=== PATIENT | male | born 1980 | race Caucasian/White ===

== ENCOUNTER 2023-11-09 14:13 | Outpatient (CLI) | payer BC, SELFPAY ==
--- NOTE | ~2023-11-09 | US_ITS ---
EXAMINATION: US retroperitoneal comp DATE: 11/09/2023 14:34 INDICATION: chronic cystitis TECHNIQUE: Multiple grayscale and Doppler ultrasound images of the kidneys were obtained. COMPARISON: None. FINDINGS: The right kidney measures 11.1 x 7.1 x 6.2 cm. The left kidney measures 13.5 x 5.6 x 3.1 cm. Size dis crepancy likely related to inferior and superior right renal pole shadowing leading to measurement in accuracy. The kidneys demonstrate normal parenchymal echogenicity. There is mild bilateral pelviectas is. The bladder is normal. IMPRESSION: Mild bilateral pelviectasis. Reviewed, dictated and finalized at location K.
== END 2023-11-09 14:14 ==
LOC: MICIMG 14:15
DX: N30.90 Cystitis, unspecified without hematuria (principal)
CPT/HCPCS: 76770

== ENCOUNTER → 2024-01-02 15:55 | Outpatient (CLI) | payer BC, SELFPAY ==
--- NOTE | ~2024-01-02 | XR_ITS ---
EXAM: XR ankle RT min 3V, XR foot RT min 3V DATE: 01/02/2024 16:28 (accession [id number]), 01/02/2024 16:27 (accession [id number]) HISTORY: RIGHT ANKLE PAIN. M25.571 . COMPARISON: None available. FINDINGS: Examination was not initially ordered as STAT priority. Normal mineralization. No fracture or dislocation. Circumscribed, 10 mm x 16 mm, lytic eccentric lesion in the medial aspect of the firs t metatarsal metadiaphysis, narrow zone of transition, cortical thinning, no periosteal change. Mild degenerative change at the first MTP joint. Multiple calcific or ossific densities adjacent to the cu boid and fifth metatarsal base, may represent a combination of normal ossicles and/or calcific tendin itis. Moderate Achilles and plantar enthesopathy No erosion or periosteal change. Soft tissues within normal limits. IMPRESSION: No acute osseous finding in the right foot or ankle. 16 mm lytic lesion in the distal first metatarsal. This lesion was noted in prior radiographs dated . No report currently available for the comparison study. No aggressive features or evidence of pathologic fracture, although the lesion has increased in size. Correlate with history of prior di agnosis/workup. Possible peroneal tendon calcific tendinitis. Reviewed, dictated and finalized at location K. IMPRESSION: No acute osseous finding in the right foot or ankle. 16 mm lytic lesion in the distal first metatarsal. This lesion was noted in praful or radiographs dated 02/08/2011. No report currently available for the compariso n study. No aggressive features or evidence of pathologic fracture, although th e lesion has increased in size. Correlate with history of prior diagnosis/gwyn p. Possible peroneal tendon calcific tendinitis.
== END ==
PROVIDERS: PCP Nurse Practitioner Family; Visit Provider Nurse Practitioner Family
DX: M25.571 Pain in right ankle and joints of right foot (principal)
CPT/HCPCS: 73610; 73630